=== PATIENT | female | born 1950 | race Caucasian/White ===

== ENCOUNTER 2017-08-28 16:57 | Inpatient (IN) | payer OTHER ==
[~2017-08-28] VITALS: Ht 165.1 cm; Wt 63.3 kg
[~2017-08-28 16:57] MED LIST: ABILIFY15 MG PO; AMBIEN5 MG PO; AMITRIPTYLINE H50 M1 PO; Bactrim,Septra DS 80 PO; DEPRESSION MED; GEMFIBROZIL600 MG PO; GLUCOPHAGE500 MG PO; LEXAPRO20 MG PO; METFORMIN HCL500 MG PO; NIACIN500 M1 PO; PRILOSEC20 MG PO; ZOCOR5 MG PO; [UNRECOGNIZED DRUG - REMARK]
[2017-08-28 17:54] LABS: BASOPHIL (%) 0.5 % (0-1); EOSINOPHIL (%) 2.6 % (0-5); EOSINOPHIL COUNT 0.2 K/uL (0-0.3); HEMATOCRIT 35.1 % (36.0-46.0); HEMOGLOBIN 11.8 G/DL (11.9-15.5); IMMATURE GRANULOCYTE (%) 0.5 % (0.0-0.7); LYMPHOCYTE (%) 31.1 % (15-42); LYMPHOCYTE COUNT 2.6 K/uL (1.0-2.8); MCH 29.1 PG (29.0-34.0); MCHC 33.6 G/DL (30.0-36.0); MCV 86.5 FL (83-99); MONOCYTE (%) 4.7 % (3-12); MONOCYTE COUNT 0.4 K/uL (0-0.8); NEUTROPHIL (%) 60.6 % (45-76); PLATELET COUNT 234 K/uL (156-360); RBC DIS.WIDTH-CV 14.4 % (11.8-14.6); RBC DIS.WIDTH-SD 46.1 % (39-53); RED BLOOD COUNT 4.06 M/uL (3.80-5.20); WHITE BLOOD COUNT 8.2 K/uL (4.1-10.2)
[2017-08-28 18:01] LABS: INTER. NORMALIZED RATIO 1.1
[2017-08-28 18:04] LABS: PTT 26.8 SEC (25-37)
[2017-08-28 18:06] LABS: ALBUMIN 3.9 g/dL (3.2-4.8); CHLORIDE 112 mEq/L (99-109); SODIUM 142 mEq/L (136-147)
[2017-08-28 18:08] LABS: GLUCOSE 116 mg/dL (70-99); TOTAL PROTEIN 6.8 g/dL (6.4-8.3)
[2017-08-28 18:10] LABS: TOTAL BILIRUBIN 0.4 mg/dL (0.0-1.0)
[2017-08-28 18:12] LABS: ALKALINE PHOSPHATASE 134 IU/L (3-129); CREATININE 3.2 mg/dL (0.6-1.3); GFR ESTIMATE (CALCULATED) 15 mL/min/
[2017-08-28 18:13] LABS: UREA NITROGEN (BUN) 38 mg/dL (9-23)
[2017-08-28 18:14] LABS: AST (GOT) 11 IU/L (2-34)
[2017-08-28 18:15] LABS: ALT (GPT) 6 IU/L (3-49); LIPASE 34 U/L (1.0-51.0)
[2017-08-28 19:50] LABS: APPEARANCE CLOUDY ((CLEAR)); BILIRUBIN NEGATIVE; BLOOD NEGATIVE; COLOR AMBER ((YELLOW)); GLUCOSE (STRIP) NEGATIVE; KETONES NEGATIVE; LEUKOCYTES NEGATIVE; NITRITE NEGATIVE; PROTEIN (STRIP) 30; SPECIFIC GRAVITY 1.024 (1.000-1.030); UROBILINOGEN 0.2 MG/DL (0.2-1.0)
[2017-08-28 20:03] LABS: BACTERIA RARE /HPF; EPITHELIAL CELLS 2+ /HPF; MUCUS TRACE /LPF; RED BLOOD CELLS NONE SEEN /HPF (0-5); UCUL ADDED? NO; WHITE BLOOD CELLS 0-5 /HPF (0-5)
[2017-08-28] MEDS ORDERED: LISINOPRIL10 MG PO (20:32)
[2017-08-28] MEDS ORDERED: FLUPHENAZINE HCL5 MG PO (20:33)
[2017-08-28] MEDS ORDERED: HALOPERIDOL5 MG PO (20:35)
[2017-08-28] MEDS ORDERED: ARIPIPRAZOLE30 MG PO (20:36)
[2017-08-28] MEDS ORDERED: SIMVASTATIN20 MG PO (20:37)
[2017-08-28] MEDS ORDERED: ATARAX,VISTARIL25 MG PO (20:38)
[2017-08-28] MEDS ORDERED: BENZTROPINE ME0.5 MG PO (20:39)
[2017-08-28] MEDS ORDERED: TRAZODONE HCL50 MG PO (20:40)
[2017-08-28] MEDS ORDERED: ESCITALOPRAM OX20 MG PO (20:41)
[2017-08-28] MEDS ORDERED: BUPROPION XL300 MG PO (20:43)
[2017-08-28] MEDS ORDERED: ROPINIROLE HCL0.5 MG PO (20:44)
[2017-08-28] MEDS ORDERED: LOSARTAN POTAS100 MG PO (20:45)
[2017-08-28] MEDS ORDERED: OMEPRAZOLE20 MG PO (20:52)
[2017-08-29 04:00] VITALS: BP 140/62
[2017-08-29 06:58] LABS: HEMATOCRIT 31.9 % (36.0-46.0); HEMOGLOBIN 10.3 G/DL (11.9-15.5); MCH 28.5 PG (29.0-34.0); MCHC 32.3 G/DL (30.0-36.0); MCV 88.1 FL (83-99); PLATELET COUNT 184 K/uL (156-360); RBC DIS.WIDTH-CV 14.3 % (11.8-14.6); RBC DIS.WIDTH-SD 46.3 % (39-53); RED BLOOD COUNT 3.62 M/uL (3.80-5.20); WHITE BLOOD COUNT 5.9 K/uL (4.1-10.2)
[2017-08-29 07:22] LABS: ALBUMIN 3.2 G/DL (3.2-4.8); ALKALINE PHOSPHATASE 102 IU/L (3-129); ALT (GPT) 4 IU/L (3-49); AST (GOT) 9 IU/L (2-34); CHLORIDE 120 MEQ/L (99-109); POTASSIUM 3.8 MEQ/L (3.7-5.4); SODIUM 142 MEQ/L (136-147); TOTAL BILIRUBIN 0.3 MG/DL (0.0-1.0); TOTAL PROTEIN 5.1 G/DL (6.4-8.3); UREA NITROGEN (BUN) 34 mg/dL (9-23)
[2017-08-29 07:23] LABS: CREATININE 1.9 MG/DL (0.6-1.3); GFR ESTIMATE (CALCULATED) 28 mL/min/; GLUCOSE 80 mg/dL (70-99)
[2017-08-29 08:15] VITALS: BP 140/68
[2017-08-29 12:19] VITALS: BP 122/80
[2017-08-29] MEDS ORDERED: OMEPRAZOLE20 MG PO (14:07)
[2017-08-29] MEDS ORDERED: IBUPROFEN800 MG PO (14:08)
[2017-08-29 16:43] VITALS: BP 154/78
[2017-08-29 19:42] VITALS: BP 157/71
[2017-08-29 23:43] VITALS: BP 140/63
[2017-08-30 03:10] VITALS: BP 115/58
[2017-08-30 05:55] LABS: BASOPHIL (%) 0.8 % (0-1); BASOPHIL COUNT 0.1 K/uL (0-0.1); EOSINOPHIL (%) 3.6 % (0-5); EOSINOPHIL COUNT 0.2 K/uL (0-0.3); HEMATOCRIT 30.5 % (36.0-46.0); HEMOGLOBIN 10.1 G/DL (11.9-15.5); IMMATURE GRANULOCYTE (%) 0.3 % (0.0-0.7); LYMPHOCYTE (%) 35.6 % (15-42); LYMPHOCYTE COUNT 2.3 K/uL (1.0-2.8); MCHC 33.1 G/DL (30.0-36.0); MCV 84.5 FL (83-99); MONOCYTE (%) 6.1 % (3-12); MONOCYTE COUNT 0.4 K/uL (0-0.8); NEUTROPHIL (%) 53.6 % (45-76); NEUTROPHIL COUNT 3.5 K/uL (1.8-6.4); PLATELET COUNT 204 K/uL (156-360); RBC DIS.WIDTH-CV 13.9 % (11.8-14.6); RBC DIS.WIDTH-SD 43.2 % (39-53); RED BLOOD COUNT 3.61 M/uL (3.80-5.20); WHITE BLOOD COUNT 6.4 K/uL (4.1-10.2)
[2017-08-30 06:19] LABS: CHLORIDE 116 MEQ/L (99-109); CREATININE 1.3 MG/DL (0.6-1.3); GFR ESTIMATE (CALCULATED) 44 mL/min/; GLUCOSE 98 mg/dL (70-99); POTASSIUM 3.6 MEQ/L (3.7-5.4); SODIUM 145 MEQ/L (136-147); UREA NITROGEN (BUN) 22 mg/dL (9-23)
[2017-08-30 07:03] VITALS: BP 173/80
[2017-08-30 08:34] LABS: MAGNESIUM 1.2 mg/dl (1.3-2.7)
[2017-08-30 11:29] VITALS: BP 181/80
[2017-08-30 15:35] VITALS: BP 145/73
[2017-08-30 18:47] VITALS: BP 185/80
[2017-08-30 23:07] VITALS: BP 186/87
[2017-08-31 00:40] VITALS: BP 139/71
[2017-08-31 07:01] LABS: CHLORIDE 109 MEQ/L (99-109); CREATININE 0.9 MG/DL (0.6-1.3); GFR ESTIMATE (CALCULATED) > 59 mL/min/; POTASSIUM 3.6 MEQ/L (3.7-5.4); SODIUM 143 MEQ/L (136-147); UREA NITROGEN (BUN) 13 mg/dL (9-23)
[2017-08-31 07:02] LABS: GLUCOSE 161 mg/dL (70-99); MAGNESIUM 1.5 mg/dl (1.3-2.7)
[2017-08-31 07:14] VITALS: BP 162/82
[2017-08-31 09:05] LABS: HEMOGLOBIN A1c (GLYCOHEMOGLOB) 5.8 % (Below 5.7)
[2017-08-31 10:40] VITALS: BP 134/71
[2017-08-31] MEDS ORDERED: ARIPIPRAZOLE15 MG PO (11:58)
== END 2017-08-31 15:10 | disposition home health service (06) | DRG 392 ==
LOC: EME 16:57 → EDOF 21:01 → 5EAST 21:01 → ENRESERV 21:05 → 5EAST 22:02
PROVIDERS: Emergency Medicine; Internal Medicine; Physician Assistant; Student in an Organized Health Care Education/Training Program
DX: K52.9 Noninfective gastroenteritis and colitis, unspecified (principal); N17.9 Acute kidney failure, unspecified; F31.9 Bipolar disorder, unspecified; I10 Essential (primary) hypertension; E78.5 Hyperlipidemia, unspecified; G24.01 Drug induced subacute dyskinesia; F25.9 Schizoaffective disorder, unspecified; F17.200 Nicotine dependence, unspecified, uncomplicated; E86.0 Dehydration; R29.6 Repeated falls; E11.9 Type 2 diabetes mellitus without complications; J43.9 Emphysema, unspecified; Z79.84 Long term (current) use of oral hypoglycemic drugs
CPT/HCPCS: 70450; 71046; 74176; 80048; 80053; 81003; 82272; 82948; 83036; 83690; 83735; 85025; 85027; 85610; 85730; 87040; 87177; 87329; 87493; 93005; 97530 GO; 99281; 99285; J0360; J1644; J1815; J3475; J7030; J7120; Q0164